=== PATIENT | female | born 1995 | race Caucasian/White ===

== ENCOUNTER 2018-08-08 08:18 | Emergency (ER) | payer OTHER ==
[~2018-08-08] VITALS: Ht 154.9 cm; Wt 63.9 kg
[2018-08-08] MEDS ORDERED: ONDANSETRON ODT 4 MG PO ONE (09:00)
--- NOTE | 2018-08-08 09:02 | NUR ---
AFTER BLOOD DRAWN TO ULTRASOUND VIA GURNEY
[2018-08-08] MEDS ORDERED: ONDANSETRON ODT 4 MG ONE (09:08)
[2018-08-08 09:10] LABS: BASOPHILS # (AUTO) 0.06 x10^3/uL (0-0.1); BASOPHILS % (AUTO) 1 % (0-1); EOSINOPHILS # (AUTO) 0.14 x10^3/uL (0-0.4); EOSINOPHILS % (AUTO) 2 % (1-7); LYMPHOCYTES # (AUTO) 1.58 x10^3/uL (1-3.4); LYMPHOCYTES % (AUTO) 21 % (22-44); MD NO; MEAN CORPUSCULAR HGB CONC 34.1 g/dL (32.4-35.8); MEAN CORPUSCULAR VOLUME 91.1 fL (80-100); MEAN PLATELET VOLUME 8.2 fL (7.4-10.4); MONOCYTES % (AUTO) 7 % (2-9); NEUTROPHILS # (AUTO) 5.21 x10^3/uL (1.8-6.8); NEUTROPHILS % (AUTO) 70 % (42-75); PLATELET COUNT 301 x10^3/uL (130-400); RED BLOOD COUNT 4.49 x10^6/uL (3.82-5.3); RED CELL DISTRIBUTION WIDTH 13.1 % (9.6-15.2)
[2018-08-08 09:19] LABS: MICROSCOPIC INDICATED
--- NOTE | 2018-08-08 09:39 | NUR ---
MEDICATED FOR NAUSEA
[2018-08-08 09:40] LABS: CULTURE INDICATED? YES
--- NOTE | 2018-08-08 09:59 | NUR ---
Patient given discharge instructions and they have confirmed that they understand the instructions. Patient ambulatory with steady gait.
[2018-08-08 10:00] VITALS: BP 115/71
== END 2018-08-08 10:01 | disposition home or self-care (01) ==
LOC: ED 09:43
DX: N94.4 Primary dysmenorrhea (principal)
CPT/HCPCS: 36415; 76830; 81001; 84702; 85025; 86901; 87086; 99284; Q0162